=== PATIENT | male | born 1960 | race Caucasian/White ===

== ENCOUNTER 2018-03-22 10:06 | Emergency (ER) | payer MEDICAID ==
--- NOTE | 2018-03-22 10:53 | ED PDOC ---
History of Present Illness History of Present Illness: Pt seen and examined at bedside with attending. 58M no PMH, no smoking p/w body aches, headache, sinus pressure, and cough for 2 days without associated fevers, chills, N/V/diarrhea, sore throat. Denies SOB, chest pain. HPI: Influenza Time Seen by Provider: 03/22/18 10:37 Chief Complaint: Flu-like Symptoms Past Medical History Vital Signs: Last Vital Signs Temp 37.6 C H 03/22/18 10:13 Pulse 93 H 03/22/18 10:13 Resp 21 03/22/18 10:13 BP 153/76 H 03/22/18 10:13 Pulse Ox 96 03/22/18 10:13 - Medical History PMH: No Chronic Diseases - Family History Family History: States: Unknown Family Hx - Home Medications Home Medications: Ambulatory Orders Medication Instructions Recorded Miconazole 2% [Miconazole 2% Cream] 1 applic TOP BID #1 tube 02/09/14 Azithromycin [Zithromax] 250 mg PO DAILY #6 tab 03/22/18 Benzonatate [Tessalon Perle] 100 mg PO Q8 #12 capsule 03/22/18 - Allergies Allergies/Adverse Reactions: Allergies Allergy/AdvReac Type Severity Reaction Status Date / Time No Known Allergies Allergy Verified 02/09/14 16:04 Review of Systems ROS Statement: Except As Marked, All Systems Reviewed And Found Negative Constitutional: Positive for: Other (Body aches) Respiratory: Positive for: Cough Physical Exam - Reviewed Vital Signs Reviewed: Yes - Physical Exam Appears: Positive for: Non-toxic Head Exam: Positive for: ATRAUMATIC Skin: Positive for: Normal Color, Warm, Dry Eye Exam: Positive for: Normal appearance, EOMI ENT: Positive for: Normal ENT Inspection Neck: Positive for: Supple Cardiovascular/Chest: Positive for: Regular Rate, Rhythm Respiratory: Positive for: Normal Breath Sounds, Crackles (scattered). Negative for: Decreased Breath Sounds, Wheezing Gastrointestinal/Abdominal: Positive for: Normal Exam, Bowel Sounds, Soft. Negative for: Tenderness Neurologic/Psych: Positive for: Alert, Oriented Medical Decision Making Medical Decision Making: Suspect URI. - CXR - Rapid Flu CXR without acute findings and rapid flu negative. - ECG O2 Sat by Pulse Oximetry: 96 Disposition - Clinical Impression Clinical Impression: Upper respiratory infection - Patient ED Disposition Is Patient to be Admitted: No Counseled Patient/Family Regarding: Diagnosis, Rx Given - Disposition Referrals: [facility] [Outside] Disposition: Routine/Home Disposition Time: 11:54 Condition: GOOD Additional Instructions: Follow up with a primary care doctor Return to the ER for worsening cough, fevers, chills despite current treatment Prescriptions: Azithromycin [Zithromax] 250 mg PO DAILY #6 tab Benzonatate [Tessalon Perle] 100 mg PO Q8 #12 capsule Instructions: Bacterial Upper Respiratory Infection, Adult Forms: [email or web address] (Sinhala), [facility] ED School/Work Excuse Print Language: MONEGASQUE
[2018-03-22 12:16] VITALS: BP 142/70; PULSE 96; RESP 20; TEMP 98.6; O2SAT 95
--- NOTE | 2018-03-22 14:29 | RAD ---
Date of service: 03/22/2018 HISTORY: Cough. COMPARISON: No prior. TECHNIQUE: Chest PA and lateral FINDINGS: LUNGS: No active pulmonary disease. PLEURA: No significant pleural effusion identified. No pneumothorax apparent. CARDIOVASCULAR: No aortic atherosclerotic calcification present. Normal cardiac size. No pulmonary vascular congestion. OSSEOUS STRUCTURES: No significant abnormalities. VISUALIZED UPPER ABDOMEN: Normal. OTHER FINDINGS: None. IMPRESSION: No active disease.
== END 2018-03-22 12:15 | disposition home or self-care (01) ==
LOC: H.ER 10:06
DX: J06.9 Acute upper respiratory infection, unspecified (principal)